=== PATIENT | female | born 1955 | race Caucasian/White ===

== ENCOUNTER 2018-03-08 14:31 | Outpatient (CLI) | payer MEDICAID, SELFPAY ==
[2018-03-11 14:57] LABS: Cacao/Cocoa, IgE <0.35 kU/L
[2018-03-18 13:25] LABS: Almond IgE <0.35 kU/L; Banana, IgE <0.35 kU/L; Cashew IgE <0.35 kU/L; Chick Pea IgE <0.35 kU/L; Corn-Food IgE <0.35 kU/L; Kidney Bean (Red) IgE <0.35 kU/L; Onion, IgE <0.35 kU/L; Soybean IgE <0.35 kU/L
== END 2018-03-08 14:51 ==
PROVIDERS: PCP Nurse Practitioner Family; Visit Provider Otolaryngology Otolaryngology/Facial Plastic Surgery
DX: L50.9 Urticaria, unspecified (principal); Z01.82 Encounter for allergy testing
CPT/HCPCS: 36415; 86003

== ENCOUNTER 2018-06-24 20:22 | Outpatient (REF) | payer MEDICAID, SELFPAY | END 2018-06-24 20:42 | LOC: NCHCN 20:22 | PROVIDERS: PCP Nurse Practitioner Family; Visit Provider Nurse Practitioner Family | DX: Z77.011 Contact with and (suspected) exposure to lead (principal) | CPT/HCPCS: 83655 ==

== ENCOUNTER 2018-08-09 11:27 | Outpatient (REF) | payer MEDICAID, SELFPAY ==
[2018-08-09 19:49] LABS: Anion Gap 11.3 mmol/L (3-11); BUN 14 mg/dL (7-18); CO2 27.7 mmol/L (21.0-32.0); CREATININE 0.61 mg/dL (0.55-1.02); Calcium 9.1 mg/dL (8.5-10.1); Chloride 105 mmol/L (98-107); Cholesterol 227 mg/dL (50-200); Glucose 88 mg/dL (70-100); HDL Cholesterol 45 mg/dL (40-60); LDL CHOLESTEROL 150 mg/dL (<100); Potassium 4.3 mmol/L (3.5-5.1); Sodium 144 mmol/L (136-145); Triglyceride 138 mg/dL (30-150); Vitamin B12 293 pg/mL (193-986)
[2018-08-12 08:12] LABS: Vitamin D 25 Total 19.1 ng/ml (30-100)
== END 2018-08-09 11:47 ==
LOC: NCHCN 11:27
PROVIDERS: PCP Nurse Practitioner Family; Visit Provider Nurse Practitioner Family
DX: Z13.228 Encounter for screening for other metabolic disorders (principal); Z13.220 Encounter for screening for lipoid disorders; E53.8 Deficiency of other specified B group vitamins; Z00.00 Encounter for general adult medical examination without abnormal findings
CPT/HCPCS: 80048; 80061; 82306; 83721; 82607

== ENCOUNTER 2019-10-17 20:14 | Outpatient (REF) | payer OTHER, SELFPAY ==
[2019-10-17 20:16] LABS: Calculated LDL 168 mg/dL (<100); Cholesterol 264 mg/dL (<200); Glucose 86 mg/dL (74-106); HDL Cholesterol 43 mg/dL (40-60); Triglyceride 269 mg/dL (<150); Vitamin B12 267 pg/mL (193-986)
[2019-10-20 11:26] LABS: Vitamin D 25 Total 25.4 ng/ml (30-100)
== END 2019-10-17 20:34 ==
LOC: NCHCN 20:14
PROVIDERS: PCP Nurse Practitioner Family; Visit Provider Nurse Practitioner Family
DX: E78.5 Hyperlipidemia, unspecified (principal); E55.9 Vitamin D deficiency, unspecified; E53.8 Deficiency of other specified B group vitamins; Z00.00 Encounter for general adult medical examination without abnormal findings
CPT/HCPCS: 80061; 82306; 82947; 82607

== ENCOUNTER 2020-10-22 16:39 | Outpatient (REF) | payer OTHER, SELFPAY ==
[2020-10-22 18:53] LABS: Calculated LDL 128 mg/dL (<100); Cholesterol 227 mg/dL (<200); HDL Cholesterol 41 mg/dL (40-60); Triglyceride 290 mg/dL (<150); Vitamin B12 216 pg/mL (193-986)
[2020-10-25 02:38] LABS: Vitamin D 25 Total 28.6 ng/mL (30-100)
== END 2020-10-22 16:40 | disposition home or self-care (01) ==
LOC: NCHCN 16:39
PROVIDERS: PCP Nurse Practitioner Family; Visit Provider Nurse Practitioner Family
DX: E53.8 Deficiency of other specified B group vitamins (principal); E55.9 Vitamin D deficiency, unspecified; E78.5 Hyperlipidemia, unspecified
CPT/HCPCS: 80061; 82306; 82607